=== PATIENT | male | born 1955 | race Caucasian/White ===

== ENCOUNTER 2018-12-19 16:34 | Emergency (ER) | payer OTHER ==
[2018-12-19 16:51] VITALS: BMI 25.7
--- NOTE | 2018-12-19 16:52 | PDOC ---
Attending Attestation - Resident Resident Name: Ml Knox - ED Attending Attestation I have performed the following: I have examined & evaluated the patient, The case was reviewed & discussed with the resident, I agree w/resident's findings & plan, Exceptions are as noted - HPI HPI: 12/19/18 17:26 63yo male with hx of htn and hld with elevated bp today. Pt states he had a slight walker this AM. States he took advil and the walker resolved, but checked bp this afternoon and noticed the bp was elevated. States his next pmd appt is in 2 weeks for eval of L testicular mass he found. Pt denies penile discharge or dysuria. Denies rashes, ulcerations. Denies blurred vision/paresthesias/ weakness. Denies cp/sob. No abd pain. No n/v/d. No other complaints. Admits to drinking etoh yesterday. Denies tobacco use. - Physicial Exam PE: 12/19/18 17:27 gen: aaox3, nad heart: +s1s2 reg lungs: cta b/l abd: soft, nt/nd +bs gu: L testicular 1x1cm mass- hard, nonmobile, no ttp, no rash, no lesions, no ulcerations, no vesicles ext: no c/c/e neuro: cn ii-xii grossly intact, no focal deficits, pt ambulatory in the ED with a steady gait - Medical Decision Making 12/19/18 17:24 a/p: 63yo male with elevated bp today -pt complaint with hctz -does admit to etoh use yesterday -pt states he does not eat salty foods -pt concerned over L testicle mass - noticed it 2 weeks ago -pt denies penile pain or discharge, no new sexual partners -pt took meds today - will check labs, scrotal ultrasound, ua -will give tylenol -will obtain ekg -will monitor and reassess -pt states pmd appt in 2 weeks, states nervous/anxious over mass on L testicle 12/19/18 18:11 pt with dehydration and low potassium will replace potassium, ivf hydration ua neg, but shows ketones 12/19/18 18:11 scrotal ultrasound pending 12/19/18 18:57 epidydimal cyst on ultrasound discussed labs and ultrasound imaging pt states he needs to see docs at [facility] - they are in network will give number for [facility] urology at [facility] answered all questions stable for dc to home after ivf hydration Heart Score/ECG Review - ECG Intrepretation Comment:: 12/19/18 17:26 sinus at 87, nl axis, nl interval, no acute st/t wave findings
--- NOTE | 2018-12-19 16:54 | PDOC ---
History of Present Illness - General Chief Complaint: Blood Pressure Problem Stated Complaint: HIGH BLOOD PRESSURE, HEADACHE Time Seen by Provider: 12/19/18 16:50 - History of Present Illness Initial Comments: 12/19/18 16:55 63 year old man with a history of HTN and HLD who presents with elevated blood pressure to 178/105. The patient reports that he woke up this AM and had a headache and nausea and took an Advil with relief but continued to check his bp throughout the day. The patient reports that he has been anxious after a L testicular mass he found several days ago and is awaiting evaluation at his PCP' s office. The patient denies sickness, illness, fever, dysuria, hematuria, chest pain, shortness of breath, diarrhea, constipation or any other concerning symptoms. ROS GENERAL/CONSTITUTIONAL: No fever or chills. No weakness. HEAD, EYES, EARS, NOSE AND THROAT: No change in vision. No ear pain or discharge. No sore throat. CARDIOVASCULAR: No chest pain or shortness of breath RESPIRATORY: No cough, wheezing, or hemoptysis. GASTROINTESTINAL: + nausea, No vomiting, diarrhea or constipation. GENITOURINARY: No dysuria, frequency, or change in urination. MUSCULOSKELETAL: No joint or muscle swelling or pain. No neck or back pain. SKIN: No rash NEUROLOGIC: + headache, vertigo, loss of consciousness, or change in strength/ sensation. PE GENERAL: Awake, alert, and fully oriented, in no acute distress HEAD: No signs of trauma, normocephalic, atraumatic EYES: PERRLA, EOMI, sclera anicteric, conjunctiva clear ENT: oropharynx clear without exudates. Moist mucosa NECK: Normal ROM, supple LUNGS: No distress, speaks full sentences, clear to auscultation bilaterally HEART: Regular rate and rhythm, normal S1 and S2, no murmurs, rubs or gallops, peripheral pulses normal and equal bilaterally. ABDOMEN: Soft, nontender No guarding, no rebound. No masses EXTREMITIES : Normal inspection, Normal range of motion, no edema. No clubbing or cyanosis. NEUROLOGICAL: Cranial nerves II through XII grossly intact. Normal speech, normal gait, no focal sensorimotor deficits SKIN: Warm, Dry, normal turgor, no rashes or lesions noted GENITAL: L testicular hard nomobile mass 1cm x.5cm, no inguinal lymph nodes MDM DDX including but not limited to: anxiety r/o infectious ED Course: US with epididymal cyst hyponatremia, hypokalemia, ketone in uirne will hhydrate nad replete KCl Ml Knox, PGY2 Emergency Medicine Past History - Past Medical History Allergies/Adverse Reactions: Allergies Allergy/AdvReac Type Severity Reaction Status Date / Time amoxicillin Allergy Rash Verified 12/19/18 16:47 Home Medications: Ambulatory Orders Atorvastatin Ca [Lipitor] 10 mg PO HS 12/19/18 Hydrochlorothiazide [Hctz -] 25 mg PO DAILY 12/19/18 COPD: No HTN: Yes - Psycho Social/Smoking Cessation Hx Smoking History: Former smoker Have you smoked in the past 12 months: No Information on smoking cessation initiated: No Hx Alcohol Use: ("most days") Drug/Substance Use Hx: No Substance Use Type: Alcohol *Physical Exam - Vital Signs Last Vital Signs Temp Pulse Resp BP Pulse Ox 98.6 F 94 H 18 172/103 H 100 12/19/18 16:34 12/19/18 16:34 12/19/18 16:34 12/19/18 16:34 12/19/18 16:34 ED Treatment Course - LABORATORY CBC & Chemistry Diagram: 12/19/18 17:15 12/19/18 17:15 Discharge - Discharge Information Problems reviewed: Yes Clinical Impression/Diagnosis: Epididymal cyst, Hypertension Condition: Stable Disposition: HOME - Admission No - Follow up/Referral Referrals: Jaci Goodman MD [Staff Physician] - - Patient Discharge Instructions Patient Printed Discharge Instructions: DI for High Blood Pressure Additional Instructions: You were seen in the ER for complaints of elevated blood pressure and testicular mass Your ultrasound showed an epididymal cyst, which is a benign fluid collection Your labs showed some electrolyte changes which were repleted You have a referral to a Urologist that should be followed up within 1 week. [facility] [address] [place], [place] [id number] Follow up with your Family Doctor within 1 week. Return to the ED if you experience penile discharge, pain, swelling, headache, nausea, dizziness or any other concerning symptoms. - Post Discharge Activity
[2018-12-19] MEDS ORDERED: ACETAMINOPHEN 325 MG TABLET (FP) PO ONE (17:22)
[2018-12-19] MEDS ORDERED: ACETAMINOPHEN 325 MG TABLET (FP) ONE (17:32)
[2018-12-19 17:41] LABS: BASO % 0.8 % (0-2.0); EOS % 0.5 % (0-4.5); HEMATOCRIT 42.7 % (35.4-49); HEMOGLOBIN 14.5 GM/dl (11.7-16.9); LYMPH % 22.3 % (8-40); MCH 30.1 pg (25.7-33.7); MCHC 33.9 g/dl (32.0-35.9); MEAN CELL VOLUME 88.7 fl (80-96); MONO % 13.2 % (3.8-10.2); NEUT % 63.2 % (42.8-82.8); PLATELET COUNT 203 K/MM3 (134-434); RBC 4.82 M/mm3 (4.00-5.60); RDW 13.3 % (11.9-15.9); WHITE BLOOD COUNT 5.5 K/mm3 (4.0-10.8)
[2018-12-19 17:52] LABS: ALBUMIN 4.9 g/dl (3.4-5.0); CALCIUM 9.8 mg/dl (8.5-10); CREATININE 0.7 mg/dl (0.55-1.3); POTASSIUM 3.3 mmol/L (3.5-5.1); TOT PROT 7.8 g/dl (6.4-8.2)
[2018-12-19] MEDS ORDERED: POTASSIUM CHLORIDE TABS 10 MEQ TABLET.ER (FP) PO ONE (17:56)
[2018-12-19] MEDS ORDERED: SODIUM CHLORIDE 1,000 ML IV SCH (18:00)
[2018-12-19] MEDS ORDERED: POTASSIUM CHLORIDE TABS 20 MEQ TABLET.ER (FP) PO ONE (18:50)
[2018-12-19 19:21] LABS: AMORP PHOS 1+ /hpf (NONE SEEN)
[2018-12-19 19:47] VITALS: BP 153/101; PULSE 75; TEMP 97.8
--- NOTE | 2018-12-20 11:19 | EKG ---
Test Reason : Blood Pressure : / mmHG Vent. Rate : 087 BPM Atrial Rate : 087 BPM P-R Int : 180 ms QRS Dur : 092 ms QT Int : 370 ms P-R-T Axes : 062 013 027 degrees QTc Int : 445 ms NORMAL SINUS RHYTHM NORMAL ECG NO PREVIOUS ECGS AVAILABLE Confirmed by MD Cookie, Abelardo ([id number]) on 12/20/2018 11:19:42 AM Referred By: Confirmed By:Abelardo Gary MD
== END 2018-12-19 19:45 | disposition home or self-care (01) ==
LOC: FER 16:34
DX: N50.3 Cyst of epididymis (principal); I10 Essential (primary) hypertension; Z88.8 Allergy status to other drugs, medicaments and biological substances; Z87.891 Personal history of nicotine dependence
CPT/HCPCS: 36415; 76870-TC; 80053; 81003; 81015; 84484; 85025; 87086; 93005; 99284-25; J7030

== ENCOUNTER 2018-12-23 13:47 | Emergency (ER) | payer OTHER ==
[2018-12-23 14:07] VITALS: PULSE 100; TEMP 97.3; BMI 26.0
[2018-12-23] MEDS ORDERED: SODIUM CHLORIDE 1,000 ML IV ONE (14:43)
--- NOTE | 2018-12-23 14:43 | PDOC ---
History of Present Illness - General Chief Complaint: Blood Pressure Problem Stated Complaint: HIGH BLOOD PRESSURE Time Seen by Provider: 12/23/18 14:32 History Source: Patient Exam Limitations: No Limitations - History of Present Illness Initial Comments: 12/23/18 15:21 63y M hx of htn on hctc 25 presenst with feeling lightheaded and 'out of sorts' . Patient notes that he has been feeling the weight this way since this morning also notes that he felt this way on Wednesday and came to the ER for evaluation. Patient states that he had some blood work checked which showed that he was hyponatremic. Patient states that he checked his blood pressure this morning after not feeling well and noted his BP was elevated. States the patient is compliant with medications and has not used any new occasions or over-the- counter medications.. His blood pressure is usually slightly elevated in the 140s over 87 range. He is currently in between doctors as his old physician is no longer covered under his insurance and his appointment with a new doctor is in late January. Patient denies any associated pain including headache neck pain, chest pain, back pain, abdominal pain, vomiting, fever, chills, diarrhea, dysuria, Vision changes, numbness/tinglginwea/nkess. She has no symptoms with exertion or movement ROS Constitutional - "outof sorts" no reported Fever, Chills, HEENT: no reported vision changes, sore throat Respiratory: no reported cough, sob, hemoptysis Cardiac: " light headedness" no reported chest pain, palpitations,, leg swelling Abd/GI: no reported abd pain, nausea, vomiting, blood per rectum, melena, diarrhea : no reported dysuria, frequency, discharge Musculskelatal - no reported back pain, joint swelling skin - no reported bruising, erythema, rash neurological: no reported headache, numbness, focal weakness, tingling, ataxia, hematologic: no reported easy bruising, easy bleeding Physical exam GENERAL: The patient is awake, alert, and fully oriented, Nontoxic - in no acute distress. HEAD: Normocephalic, atraumatic. EYES: extraocular movements intact, sclera anicteric, conjunctiva clear. ENT: Normal voice, Moist mucous membranes. NECK: Normal range of motion, supple LUNGS: Breath sounds equal, clear to auscultation bilaterally. No wheezes, no rhonchi, no rales. HEART: Regular rate and rhythm, normal S1 and S2 without murmur, rub or gallop. ABDOMEN: Soft, nontender, No guarding, no rebound. No CVA tenderness EXTREMITIES: Normal range of motion, no edema. NEUROLOGICAL: No facial assymetry, Normal speech, Moving all 4 extremities spontaneously symmetrically PSYCH: Normal mood, normal affect. SKIN: Warm, Dry, normal turgor, We will check the patient's blood work as the patient was noted to be hyponatremic and hypokalemic previously This may be secondary to the patient's HCTZ use. We will hydrate the patient will obtain EKG Will reassess Past History - Past Medical History Allergies/Adverse Reactions: Allergies Allergy/AdvReac Type Severity Reaction Status Date / Time amoxicillin Allergy Rash Verified 12/19/18 16:47 Home Medications: Ambulatory Orders Atorvastatin Ca [Lipitor] 10 mg PO Q48H 12/19/18 Hydrochlorothiazide [Hctz -] 25 mg PO DAILY 12/19/18 Lisinopril 10 mg PO DAILY #30 tablet 12/23/18 COPD: No HTN: Yes Hypercholesterolemia: Yes - Psycho Social/Smoking Cessation Hx Smoking History: Former smoker Have you smoked in the past 12 months: No Information on smoking cessation initiated: No Hx Alcohol Use: Yes (DAILY) Drug/Substance Use Hx: No Substance Use Type: Alcohol *Physical Exam - Vital Signs Last Vital Signs Temp Pulse Resp BP Pulse Ox 97.3 F L 100 H 16 175/100 H 100 12/23/18 13:48 12/23/18 13:48 12/23/18 13:48 12/23/18 13:48 12/23/18 13:48 Heart Score/ECG Review - ECG Impressions Comment:: 12/23/18 15:35 Twelve-lead EKG was performed and reviewed by me. There is normal sinus rhythm with a normal rate. rate of 83 The axis is normal. The intervals are normal. There is normal R wave progression There are no ST or T wave abnormalities. Impression: Normal twelve-lead EKG ED Treatment Course - LABORATORY CBC & Chemistry Diagram: 12/23/18 15:15 12/23/18 15:15 Medical Decision Making - Medical Decision Making 12/23/18 16:42 The patient's labs are reviewed they are stable I will change the patient's hypertension medication to lisinopril 10 mg. We will have the patient follow-up with PMD return precautions were discussed Discharge - Discharge Information Problems reviewed: Yes Clinical Impression/Diagnosis: Medication side effect Hypertension Qualifiers: Hypertension type: unspecified Qualified Code(s): I10 - Essential (primary) hypertension Condition: Improved Disposition: HOME - Admission No - Follow up/Referral Referrals: [facility] [Provider Group] - Patient Discharge Instructions Patient Printed Discharge Instructions: DI for High Blood Pressure Additional Instructions: Return to the emergency department immediately with ANY new, persistent or worsening symptoms Including any dizziness, Shortness of breath, dizziness, swelling or any other concerns. Your lab work revealed that you had low sodium and low potassium I suspect this may be due to the blood pressure Medication that you were on. He was follow-up with a doctor in 2-3 weeks for further evaluation of your blood pressure and possible blood work. You MUST call and follow up with your doctor for further evaluation of your symptoms. Results were discussed with you. Please make sure your doctor reviews the results of your emergency evaluation. Your Emergency Department visit is not complete without a follow up with your doctor. Print Language: CAMBODIAN - Post Discharge Activity
[2018-12-23 15:33] LABS: BASO % 0.5 % (0-2.0); EOS % 0.5 % (0-4.5); HEMATOCRIT 39.5 % (35.4-49); HEMOGLOBIN 13.3 GM/dl (11.7-16.9); LYMPH % 19.9 % (8-40); MCHC 33.6 g/dl (32.0-35.9); MEAN CELL VOLUME 89.2 fl (80-96); MEAN PLT VOLUME 7.9 fl (7.5-11.1); MONO % 19.2 % (3.8-10.2); NEUT % 59.9 % (42.8-82.8); PLATELET COUNT 176 K/MM3 (134-434); RBC 4.42 M/mm3 (4.00-5.60); RDW 12.9 % (11.9-15.9)
[2018-12-23 15:49] LABS: ALBUMIN 4.5 g/dl (3.4-5.0); BILIRUBIN,TOTAL 0.5 mg/dl (0.2-1); CALCIUM 9.1 mg/dl (8.5-10); CREATININE 0.7 mg/dl (0.55-1.3); POTASSIUM 3.6 mmol/L (3.5-5.1); TOT PROT 7.3 g/dl (6.4-8.2)
[2018-12-23 16:00] VITALS: BP 163/101
--- NOTE | 2018-12-25 16:47 | EKG ---
Test Reason : Blood Pressure : / mmHG Vent. Rate : 083 BPM Atrial Rate : 083 BPM P-R Int : 176 ms QRS Dur : 094 ms QT Int : 360 ms P-R-T Axes : 065 -02 045 degrees QTc Int : 423 ms NORMAL SINUS RHYTHM POOR DATA QUALITY IN CURRENT ECG PRECLUDES SERIAL COMPARISON WHEN COMPARED WITH ECG OF 19-DEC-2018 17:19, NO SIGNIFICANT CHANGE WAS FOUND Confirmed by RASHIDA HERNANDEZ MD ([id number]) on 12/25/2018 4:46:46 PM Referred By: SARY ELLIOTT Confirmed By:RASHIDA HERNANDEZ MD
== END 2018-12-23 17:00 | disposition home or self-care (01) ==
LOC: FER 13:47
PROC: 3E0337Z Introduction of Electrolytic and Water Balance Substance into Peripheral Vein, Percutaneous Approach (ICD-10-PCS; principal; 2018-12-23)
DX: I10 Essential (primary) hypertension (principal); T65.91XA Toxic effect of unspecified substance, accidental (unintentional), initial encounter; Z88.8 Allergy status to other drugs, medicaments and biological substances
CPT/HCPCS: 36415; 80053; 85025; 93005; 96360; 99283-25; J7030

== ENCOUNTER 2019-01-06 20:09 | Inpatient (IN) | payer OTHER ==
[2019-01-06] MEDS ORDERED: ONDANSETRON 4 MG/2 ML VIAL IVPB ONE (20:51)
[2019-01-06] MEDS ORDERED: SODIUM CHLORIDE 1,000 ML IV ONE (20:52)
[2019-01-06] MEDS ORDERED: MECLIZINE HCL 25 MG TABLET (FP) PO ONE (20:53)
[2019-01-06] MEDS ORDERED: ONDANSETRON 4 MG/2 ML VIAL ONE (20:58)
[2019-01-06] MEDS ORDERED: MECLIZINE HCL 25 MG TABLET (FP) ONE (20:58)
[2019-01-06 21:16] LABS: BASO % 0.2 % (0-2.0); EOS % 1.5 % (0-4.5); HEMATOCRIT 37.5 % (35.4-49); HEMOGLOBIN 12.7 GM/dl (11.7-16.9); LYMPH % 34.5 % (8-40); MCH 30.1 pg (25.7-33.7); MEAN CELL VOLUME 88.6 fl (80-96); MEAN PLT VOLUME 8.3 fl (7.5-11.1); MONO % 14.9 % (3.8-10.2); NEUT % 48.9 % (42.8-82.8); PLATELET COUNT 192 K/MM3 (134-434); RBC 4.23 M/mm3 (4.00-5.60); RDW 12.8 % (11.9-15.9); WHITE BLOOD COUNT 5.2 K/mm3 (4.0-10.8)
[2019-01-06 21:23] LABS: ALBUMIN 4.5 g/dl (3.4-5.0); BILIRUBIN,TOTAL 0.8 mg/dl (0.2-1); CREATININE 0.7 mg/dl (0.55-1.3); POTASSIUM 3.4 mmol/L (3.5-5.1); TOT PROT 6.9 g/dl (6.4-8.2)
[2019-01-06] MEDS ORDERED: SODIUM CHLORIDE 1,000 ML IV SCH (21:30)
--- NOTE | 2019-01-06 21:52 | PDOC ---
Documentation entered by Sabina Vallejo SCRIBE, acting as scribe for Niyah Franco MD. Niyah Franco MD: This documentation has been prepared by the Genevieve sheriff Sammi, SCRIBE, under my direction and personally reviewed by me in its entirety. I confirm that the documentation accurately reflects all work, treatment, procedures, and medical decision making performed by me. History of Present Illness - General Chief Complaint: Nausea/Vomiting Stated Complaint: NAUSEA/VOMITING History Source: Patient Exam Limitations: No Limitations - History of Present Illness Initial Comments: 01/06/19 20:40 The patient is a 63 year old male who presents for evaluation of 1 day of general malaise with onset of "aggressive" vomiting in the last hour. The patient states that earlier today he began to feel fatigue and generally disoriented with associated loss of balance. He endorses his symptoms are worse with positional changes. He notes for the past several days his ears have felt congested. Patient's at bedside notes they took the patient's blood pressure as his symptoms worsened which was 180/130. PAST MEDICAL HISTORY: HTN PAST SURGICAL HISTORY: no significant history FAMILY HISTORY: no pertinent history SOCIAL HISTORY: Pt lives with family and is employed. MEDICATIONS: reviewed ALLERGIES: As per nursing notes Adult ROS General: +disoriented +loss of balance. No fevers or chills, no weight loss HEENT: +ear congestion. No change in vision. No sore throat,. CardioVascular: No chest pain or shortness of breath Respiratory:No cough, or wheezing. Gastrointestinal: +nausea, vomiting. No diarrhea or constipation, No rectal bleeding Genitourinary: No dysuria, hematuria, or frequency Musculoskeletal: No joint or muscle pain or swelling Neurologic: +vertigo. No headache or loss of consciousness Psychiatric: nor depression All other systems reviewed and normal Adult Exam: General: pale, ill appearing, reports symptoms worse when moving his head HEENT: Throat: Normal, tonsils normal, no erythema or exudate Neck: Supple, no meningeal signs, no lymphadenopathy Eyes::Pupils equal reactive and round, extraocular motion intact Chest: Nontender to palpation Cardiac: S1-S2 normal, regular rate and rhythm, no murmurs rubs or gallops Respiratory: Lungs clear to auscultation bilateral Abdomen: Soft, nondistended, normal bowel sounds, nontender to palpation diffusely Extremities: Warm, dry, no cyanosis, clubbing, or edema Skin: No rashes Neuro: Alert and oriented x3, nonfocal exam, grossly intact, normal gait Psych: Normal mood and affect 01/06/19 21:49 Assessment and plan: This is a 63-year-old male who comes in complaining of feeling disoriented and and difficulty with his gait. Patient said that he also has been nauseous and vomiting associated with his symptoms. Patient said nausea is worse with movement. Patient denies that he is spinning of the room is spinning however says that he is gait is way off and he feels disoriented. However he is alert and oriented x3. Patient denies history of similar symptoms in the past. Patient does have a history of hypertension but does not have any hypertension here in the emergency department. Patient denies any chest pain, shortness of breath, abdominal pain. Work-up initiated including head CT, CBC, comp, cardiac enzymes, EKG. EKG showed normal sinus rhythm no acute ST-T wave changes normal EKG 01/06/19 21:[address] showed no acute pathology. Patient sodium was low at 125. Patient will be admitted to an inpatient bed to rule out posterior circulation stroke and for his hypernatremia. Past History - Past Medical History Allergies/Adverse Reactions: Allergies Allergy/AdvReac Type Severity Reaction Status Date / Time amoxicillin Allergy Rash Verified 12/19/18 16:47 Home Medications: Ambulatory Orders Atorvastatin Ca [Lipitor] 10 mg PO Q48H 12/19/18 Hydrochlorothiazide [Hctz -] 25 mg PO DAILY 12/19/18 Lisinopril 10 mg PO DAILY #30 tablet 12/23/18 COPD: No HTN: Yes Hypercholesterolemia: Yes - Psycho Social/Smoking Cessation Hx Smoking History: Former smoker Have you smoked in the past 12 months: No Hx Alcohol Use: Yes (DAILY) Drug/Substance Use Hx: No Substance Use Type: Alcohol *Physical Exam - Vital Signs Last Vital Signs Temp Pulse Resp BP Pulse Ox 98.1 F 70 14 136/92 97 01/06/19 20:13 01/06/19 21:21 01/06/19 21:21 01/06/19 21:21 01/06/19 21:21 ED Treatment Course - LABORATORY CBC & Chemistry Diagram: 01/06/19 20:30 01/06/19 20:30 - ADDITIONAL ORDERS Additional order review: Laboratory Results 01/06/19 01/06/19 20:30 20:30 Sodium 125 L Potassium 3.4 L Chloride 91 L Carbon Dioxide 23 Anion Gap 11 BUN 10.0 Creatinine 0.7 Est GFR (CKD-EPI)AfAm 117.22 Est GFR (CKD-EPI)NonAf 101.14 Random Glucose 127 H Calcium 9.0 Total Bilirubin 0.8 AST 22 ALT 24 Alkaline Phosphatase 49 Creatine Kinase 131 Troponin I < 0.03 Total Protein 6.9 Albumin 4.5 01/06/19 20:30 RBC 4.23 MCV 88.6 MCHC 34.0 RDW 12.8 MPV 8.3 Neutrophils % 48.9 Lymphocytes % 34.5 D Monocytes % 14.9 H Eosinophils % 1.5 D Basophils % 0.2 - RADIOLOGY Radiology Studies Ordered: Category Date Time Status HEAD CT WITHOUT CONTRAST [CT] Stat CT Scan 01/06/19 20:47 Completed - Medications Given in the ED: ED Medications Discontinued Medications Generic Name Dose Route Start Last Admin Trade Name Freq PRN Reason Stop Dose Admin Meclizine HCl 50 mg 01/06/19 20:53 01/06/19 21:15 Antivert - PO 01/06/19 20:54 50 mg ONCE ONE Administration Ondansetron HCl 8 mg 01/06/19 20:51 01/06/19 21:00 Zofran Injection IVPB 01/06/19 20:52 8 mg ONCE ONE Administration Discharge - Discharge Information Problems reviewed: Yes Clinical Impression/Diagnosis: Hyponatremia, Vertigo Condition: Stable - Admission Yes - Follow up/Referral Referrals: ON STAFF,NOT [Primary Care Provider] - - Patient Discharge Instructions - Post Discharge Activity
--- NOTE | 2019-01-06 23:08 | HP ---
Admitting History and Physical - Primary Care Physician PCP: Dr. Richards - Admission Chief Complaint: N/V History of Present Illness: 63 year old male with PMHx of HTN, no past Sx history arrived to ED for evaluation of 1 day of general malaise with onset of vomiting in the last hour. Patient states that earlier today he began to feel fatigue, disoriented with associated loss of balance, symptoms are worse with positional changes. Patient also complains for past several days his ears have felt congested. Patient's blood pressure at home was 180/130 as his symptoms worsened. History Source: Patient, Medical Record Limitations to Obtaining History: No Limitations - Past Medical History Cardiovascular: Yes: HTN, Hyperlipdemia - Past Surgical History Past Surgical History: Yes: None - Smoking History Smoking history: Former smoker Have you smoked in the past 12 months: No - Alcohol/Substance Use Hx Alcohol Use: Yes (DAILY) History of Substance Use: reports: None - Social History Usual Living Arrangement: Yes: With Spouse ADL: Independent History of Recent Travel: No Home Medications - Allergies Allergies/Adverse Reactions: Allergies Allergy/AdvReac Type Severity Reaction Status Date / Time amoxicillin Allergy Rash Verified 12/19/18 16:47 - Home Medications Home Medications: Ambulatory Orders Atorvastatin Ca [Lipitor] 10 mg PO Q48H 12/19/18 Lisinopril 10 mg PO DAILY #30 tablet 12/23/18 Family Medical History Family History: Denies Review of Systems - Review of Systems Constitutional: reports: Malaise, Weakness, Other HENT: reports: Other (ear congestion) Neck: reports: No Symptoms Cardiovascular: reports: No Symptoms Respiratory: reports: No Symptoms Gastrointestinal: reports: Nausea, Vomiting Genitourinary: reports: No Symptoms Musculoskeletal: reports: No Symptoms Integumentary: reports: No Symptoms Neurological: reports: Unsteady Gait, Weakness, Other (disoriented) Endocrine: reports: No Symptoms Hematology/Lymphatic: reports: No Symptoms Psychiatric: reports: No Symptoms Physical Examination Vital Signs: Vital Signs Temperature 98.1 F 01/06/19 20:13 Pulse Rate 70 01/06/19 21:21 Respiratory Rate 14 01/06/19 21:21 Blood Pressure 136/92 01/06/19 21:21 O2 Sat by Pulse Oximetry (%) 97 01/06/19 21:21 Constitutional: Yes: Mild Distress Eyes: Yes: Conjunctiva Clear, EOM Intact HENT: Yes: Atraumatic, Normocephalic Neck: Yes: Supple, Trachea Midline Cardiovascular: Yes: Regular Rate and Rhythm Respiratory: Yes: Regular, CTA Bilaterally Gastrointestinal: Yes: Normal Bowel Sounds, Soft Musculoskeletal: Yes: WNL Extremities: Yes: WNL Edema: No Peripheral Pulses WNL: Yes Neurological: Yes: Alert, Oriented Labs: CBC, BMP 01/06/19 20:30 01/06/19 20:30 Imaging - Results Cat Scan: Report Reviewed (Head CT showed no acute pathology) EKG: Report Reviewed (EKG showed normal sinus rhythm no acute ST-T wave changes normal EKG) Problem List - Problems (1) HLD (hyperlipidemia) Code(s): E78.5 - HYPERLIPIDEMIA, UNSPECIFIED (2) Hyponatremia Code(s): E87.1 - HYPO-OSMOLALITY AND HYPONATREMIA (3) Vertigo Code(s): R42 - DIZZINESS AND GIDDINESS (4) Hypertension Code(s): I10 - ESSENTIAL (PRIMARY) HYPERTENSION Qualifiers: Hypertension type: unspecified Qualified Code(s): I10 - Essential (primary ) hypertension (5) Hypokalemia Code(s): E87.6 - HYPOKALEMIA Assessment/Plan 63-year-old male with PMHx of HTN/ HLD who presents for evaluation of 1 day feeling malaise, disoriented, N/V, gait difficulty. # vertigo R/o CVA - CT head: no acute pathology - EKG showed normal sinus rhythm no acute ST-T wave changes normal EKG - given antivert x1 - continue with antivert BID PRN - follow up neuro # Nausea/vomiting - given zofran x1 - monitor for N/V - zofran 4 mg q 8 hours PRN #Electrolyte imbalance #hyponatremia/Hypokalemia - given 1 L NS x1 - given KCL 20 mEq x1 - continue with IV fluids 0.9 % NS 50 ml/hr x24 - follow up BMP in AM # HTN/ HLD -Atorvastatin Ca 10 mg PO Q daily -Lisinopril 10 mg PO DAILY VTE: SCDs, heparin SQ FEN: IVF 0.9% NS, correct lytes, Cardiac diet Visit type - Emergency Visit Emergency Visit: Yes ED Registration Date: 01/06/19 Care time: The patient presented to the Emergency Department on the above date and was hospitalized for further evaluation of their emergent condition. - New Patient This patient is new to me today: Yes Date on this admission: 01/07/19 - Critical Care Critical Care patient: No
[2019-01-06 23:10] VITALS: BMI 28.0
[2019-01-06] MEDS ORDERED: ONDANSETRON 4 MG/2 ML VIAL IVPUSH PRN (23:25)
[2019-01-06] MEDS ORDERED: ATORVASTATIN CA 10 MG TABLET (FP) PO SCH (23:30)
[2019-01-06] MEDS ORDERED: POTASSIUM CHLORIDE TABS 20 MEQ TABLET.ER (FP) PO ONE (23:30)
[2019-01-06] MEDS: SODIUM CHLORIDE 1,000 ML IV SCH (23:56)
[2019-01-07 08:28] LABS: HEMATOCRIT 38.8 % (35.4-49); HEMOGLOBIN 12.7 GM/dl (11.7-16.9); MCH 29.4 pg (25.7-33.7); MCHC 32.6 g/dl (32.0-35.9); MEAN PLT VOLUME 8.4 fl (7.5-11.1); PLATELET COUNT 188 K/MM3 (134-434); RBC 4.31 M/mm3 (4.00-5.60); RDW 12.9 % (11.9-15.9); WHITE BLOOD COUNT 6.6 K/mm3 (4.0-10.8)
[2019-01-07 08:51] LABS: CALCIUM 9.2 mg/dl (8.5-10); CREATININE 0.7 mg/dl (0.55-1.3); POTASSIUM 4.2 mmol/L (3.5-5.1)
[2019-01-07 09:15] VITALS: TEMP 98.8
[2019-01-07] MEDS ORDERED: LISINOPRIL 10 MG TABLET (FP) PO SCH (10:00)
[2019-01-07] MEDS ORDERED: HEPARIN NA (PORCINE) 5,000 UNITS/ML 1ML VIAL SQ SCH (10:00)
[2019-01-07] MEDS: MECLIZINE HCL 25 MG TABLET (FP) PO PRN ×2 (10:34→15:24)
[2019-01-07] MEDS: SODIUM CHLORIDE 1,000 ML IV SCH (13:05)
--- NOTE | 2019-01-07 13:31 | DS ---
Physical Exam: SUBJECTIVE: Patient seen and examined at bedside. Still complains of mild dizziness Girlfriend at bedside OBJECTIVE: Vital Signs Period Temp Pulse Resp BP Sys/Rodriguez Pulse Ox Last 24 Hr 97.8 F-98.8 F 70-91 14-18 134-180/80-95 97-100 PHYSICAL EXAM GENERAL: The patient is awake, alert, and fully oriented, in no acute distress. HEAD: Normal with no signs of trauma. EYES: PERRL, extraocular movements intact, sclera anicteric, conjunctiva clear. ENT: Ears normal, nares patent, oropharynx clear without exudates, moist mucous membranes. NECK: Trachea midline, full range of motion, supple. LUNGS: Breath sounds equal, clear to auscultation bilaterally, no wheezes, no crackles, no accessory muscle use. HEART: Regular rate and rhythm, S1, S2 ABDOMEN: Soft, nontender, nondistended, normoactive bowel sounds, no guarding, no rebound, no hepatosplenomegaly, no masses. EXTREMITIES: 2+ pulses, warm, well-perfused, no edema. NEUROLOGICAL: Cranial nerves II through XII grossly intact. Normal speech PSYCH: Normal mood, normal affect. SKIN: Warm, dry, normal turgor, no rashes or lesions noted. LABS Laboratory Results - last 24 hr 01/06/19 01/06/19 01/06/19 20:30 20:30 20:30 WBC 5.2 RBC 4.23 Hgb 12.7 Hct 37.5 MCV 88.6 MCH 30.1 MCHC 34.0 RDW 12.8 Plt Count 192 MPV 8.3 Absolute Neuts (auto) 2.5 Neutrophils % 48.9 Lymphocytes % 34.5 D Monocytes % 14.9 H Eosinophils % 1.5 D Basophils % 0.2 Sodium 125 L Potassium 3.4 L Chloride 91 L Carbon Dioxide 23 Anion Gap 11 BUN 10.0 Creatinine 0.7 Est GFR (CKD-EPI)AfAm 117.22 Est GFR (CKD-EPI)NonAf 101.14 Random Glucose 127 H Calcium 9.0 Total Bilirubin 0.8 AST 22 ALT 24 Alkaline Phosphatase 49 Creatine Kinase 131 Troponin I < 0.03 Total Protein 6.9 Albumin 4.5 Triglycerides Cholesterol Total LDL Cholesterol HDL Cholesterol 01/07/19 01/07/19 07:20 07:20 WBC 6.6 RBC 4.31 Hgb 12.7 Hct 38.8 MCV 90.0 MCH 29.4 MCHC 32.6 RDW 12.9 Plt Count 188 MPV 8.4 Absolute Neuts (auto) Neutrophils % Lymphocytes % Monocytes % Eosinophils % Basophils % Sodium 136 Potassium 4.2 Chloride 101 Carbon Dioxide 24 Anion Gap 11 BUN 7.0 Creatinine 0.7 Est GFR (CKD-EPI)AfAm 117.22 Est GFR (CKD-EPI)NonAf 101.14 Random Glucose 98 Calcium 9.2 Total Bilirubin AST ALT Alkaline Phosphatase Creatine Kinase Troponin I Total Protein Albumin Triglycerides 55 Cholesterol 158 Total LDL Cholesterol 82 HDL Cholesterol 65 H HOSPITAL COURSE: Date of Admission:01/06/19 Date of Discharge: 01/07/19 63-year-old male with PMHx of HTN/ HLD who presents for evaluation of 1 day feeling malaise, disoriented, N/V, gait difficulty. Vertigo R/O CVA - CT head: no acute pathology - EKG showed normal sinus rhythm no acute ST-T wave changes normal EKG - given antivert x1 - continue with antivert BID PRN Nausea/vomiting (Resolved) - given zofran x1 - monitor for N/V - zofran 4 mg q 8 hours PRN Electrolyte imbalance (Resolved) hyponatremia/Hypokalemia - given 1 L NS x1 - given KCL 20 mEq x1 - continue with IV fluids 0.9 % NS 50 ml/hr x24 HTN/ HLD -Atorvastatin Ca 10 mg PO Q daily -Lisinopril 10 mg PO DAILY (Stable) VTE: SCDs, heparin SQ FEN: IVF 0.9% NS, correct lytes, Cardiac diet Minutes to complete discharge: 35 Discharge Summary Problems reviewed: Yes Reason For Visit: HYPONATREMIA, VERTIGO Current Active Problems HLD (hyperlipidemia) (Acute) Hypokalemia (Acute) Hyponatremia (Acute) Vertigo (Acute) Condition: Improved - Instructions Diet, Activity, Other Instructions: You were treated for hypertension, vertigo, nausea/vomitting, hypokalemia, and Hyponatremia. All imaging studies; Head CT to Vertigo rule out CVA (no changes since previous CT on [id number]), Chest Xray, EKG were unremarkable. You were treated with 0.9% NS, Zofran, Meclizine, potassium chloride PO, and given your Home dose of BP medication. Follow up with your PCP Wednesday regarding your recent hospital visit and to get a referral to a Computer Repairer. Maintain a heart healthy diet and decrease alcohol consumption Referrals: ON STAFF,NOT [Primary Care Provider] - Disposition: HOME - Home Medications Comprehensive Discharge Medication List: Ambulatory Orders Atorvastatin Ca [Lipitor] 10 mg PO Q48H 12/19/18 Lisinopril 10 mg PO DAILY #30 tablet 12/23/18 This patient is new to me today: Yes Date on this admission: 01/25/19 Emergency Visit: Yes ED Registration Date: 01/06/19 Care time: The patient presented to the Emergency Department on the above date and was hospitalized for further evaluation of their emergent condition. Critical Care patient: No - Discharge Referral Referred to [facility] Med P.C.: No
[2019-01-07 15:46] VITALS: BP 137/86; PULSE 72
[2019-01-07] MEDS ORDERED: POTASSIUM CHLORIDE TABS 10 MEQ TABLET.ER (FP) PO ONE (23:30)
--- NOTE | 2019-01-09 11:58 | EKG ---
Test Reason : Blood Pressure : / mmHG Vent. Rate : 073 BPM Atrial Rate : 073 BPM P-R Int : 184 ms QRS Dur : 096 ms QT Int : 412 ms P-R-T Axes : 068 033 044 degrees QTc Int : 453 ms NORMAL SINUS RHYTHM NORMAL ECG WHEN COMPARED WITH ECG OF 23-DEC-2018 15:08, NO SIGNIFICANT CHANGE WAS FOUND Confirmed by JANINA GODWIN MD ([id number]) on 01/09/2019 11:58:12 AM Referred By: SUKHI SANTOS Confirmed By:JANINA GODWIN MD
== END 2019-01-07 17:01 | disposition home or self-care (01) | DRG 111 ==
LOC: FER 20:09 → FM/S 22:08
PROVIDERS: ADMIT Internal Medicine; ATTEND Nurse Practitioner Acute Care
DX: R42 Dizziness and giddiness (principal); E87.1 Hypo-osmolality and hyponatremia; R11.2 Nausea with vomiting, unspecified; I10 Essential (primary) hypertension; E78.00 Pure hypercholesterolemia, unspecified; E87.6 Hypokalemia; R26.9 Unspecified abnormalities of gait and mobility
CPT/HCPCS: 36415; 70450-TC; 71045-TC-FY; 80048; 80053; 80061; 82550; 83721; 84484; 85025; 85027; 93005; 99283-25; J1644; J7030